=== PATIENT | male | born 1955 | race Hispanic/Latino ===

== ENCOUNTER 2016-11-15 08:22 | Outpatient (CLI) | payer BC ==
[2016-11-15 13:33] LABS: ALT (SGPT) 41 U/L (8-55); AST (SGOT) 35 U/L (5-34); Alkaline Phosphatase 79 U/L (40-150); Bilirubin, Direct 0.2 mg/dL (0.1-0.3); Bilirubin, Total 0.7 mg/dL (0.2-1.2); Cardiac Risk 5.7 (Less than 4.5); Cholesterol 195 mg/dl (< 200 Desired); HDL Cholesterol 34 mg/dL (>60 Neg Risk); LDL Cholesterol, Calculated 134 mg/dL; Protein, Total 6.8 g/dL (5.8-8.1); Triglycerides 137 mg/dL (Less than 150)
== END 2016-11-15 08:23 | disposition home or self-care (01) ==
LOC: NAVSJIPCSP 08:22
PROVIDERS: ATTEND Internal Medicine
DX: E78.5 Hyperlipidemia, unspecified (principal); Z79.899 Other long term (current) drug therapy
CPT/HCPCS: 36415; 80061; 80076

== ENCOUNTER 2017-10-13 08:48 | Outpatient (CLI) | payer BC ==
--- NOTE | 2017-10-13 10:23 | ULT ---
SONOGRAM ABDOMEN COMPLETE: History: Abnormal liver function tests. FINDINGS: Gallbladder has a normal appearance. Common duct is 0.6 cm. Liver is diffusely echogenic without foca l mass or intrahepatic biliary dilatation. No free fluid. The spleen, kidneys, and visualized portion s of the abdominal aorta, IVC, and pancreas are unremarkable. IMPRESSION: 1. No evidence of gallstones or biliary obstruction. 2. Hepatosteatosis. POS: OFF
== END 2017-10-13 08:49 | disposition home or self-care (01) ==
LOC: NAV ULT 08:48
PROVIDERS: ATTEND Internal Medicine
DX: R74.0 Nonspecific elevation of levels of transaminase and lactic acid dehydrogenase [LDH] (principal); K76.0 Fatty (change of) liver, not elsewhere classified
CPT/HCPCS: 76700

== ENCOUNTER 2018-03-09 16:40 | Outpatient (CLI) | payer BC ==
--- NOTE | 2018-03-09 18:59 | RAD ---
CERVICAL SPINE THREE VIEWS: HISTORY: Upper neck pain, at C3 and C4. No injury. TECHNIQUE: AP, lateral, and open-mouth odontoid views of the cervical spine are obtained. FINDINGS: Images demonstrate no significant evidence of disk space height loss. Small anterior and posterior o steophytes are seen at C4-C5 and C5-C6. Findings are compatible with changes of spondylosis. IMPRESSION: Mid cervical spine changes of spondylosis. No acute abnormality is seen. POS: MARYJANE
== END 2018-03-09 16:41 | disposition home or self-care (01) ==
LOC: NAV RAD 16:40
PROVIDERS: ATTEND Nurse Practitioner Adult Health
DX: M54.6 Pain in thoracic spine (principal); M47.892 Other spondylosis, cervical region
CPT/HCPCS: 72040

== ENCOUNTER 2019-04-05 09:24 | Observation (INO) | payer BC ==
[2019-04-05 09:49] LABS: #Basophils 0.1 thou/uL (0.0-0.2); #Eosinphils 0.2 thou/uL (0.0-0.7); #Lymphocytes 2.4 thou/uL (1.20-3.40); #Monocytes 0.6 thou/uL (0.11-0.59); #Neutrophils 3.7 thou/uL (1.40-6.50); %Basophils 0.9 % (0.0-1.0); %Eosinophils 3.2 % (0.0-10.0); %Lymphocytes 34.7 % (21.0-51.0); %Neutrophils 53.2 % (42.0-75.0); Hemoglobin 14.2 g/dL (14.0-18.0); Mean Corpuscular HGB CONC 33.2 g/dL (32.0-36.0); Mean Corpuscular Volume 87.5 fL (78.0-98.0); Platelet Count 233 thou/uL (130-400); RBC Distribution Width 12.5 % (11.5-14.5)
[2019-04-05 10:07] LABS: ALT (SGPT) 85 U/L (8-55); AST (SGOT) 44 U/L (5-34); Alkaline Phosphatase 97 U/L (40-110); Anion Gap 13 mmol/L (10-20); BUN (Urea Nitrogen) 13 mg/dL (8.4-25.7); Bilirubin, Total 0.4 mg/dL (0.2-1.2); Calc. Creatinine Clearance 0 mL/min (70-130); Calcium 9.2 mg/dL (7.8-10.44); Carbon Dioxide 26 mmol/L (23-31); Chloride 103 mmol/L (98-107); Estimated GFR-MDRD 75; Globulin 3.1 g/dL (2.4-3.5); Glucose 117 mg/dL (80-115); Potassium 4.1 mmol/L (3.5-5.1); Protein, Total 7.1 g/dL (5.8-8.1); Sodium 138 mmol/L (136-145)
[2019-04-05] MEDS ORDERED: Aspirin Chewable 81 MG TAB ONE (10:28)
--- NOTE | 2019-04-05 10:53 | RAD ---
Chest AP view INDICATION: Chest pain COMPARISON: September 26, 2011 FINDINGS: Lungs:The lungs are clear Cardiac silhouette:The cardiomediastinal silhouette appears within normal limits. Pulmonary vasculature:Normal Pleural spaces:No pleural effusion or pneumothorax is demonstrated. Upper abdomen:No abnormality seen. Osseous structures: No acute osseous abnormality. Additional findings:None. IMPRESSION: No acute cardiopulmonary abnormality.
[2019-04-05 11:26] VITALS: BMI 33.0
[2019-04-05] MEDS ORDERED: Acetaminophen 500 MG TAB PO PRN (13:22)
--- NOTE | 2019-04-05 15:25 | SS ---
DATE OF ADMISSION: 04/05/2019 DATE OF DISCHARGE: 04/05/2019 PRINCIPAL DIAGNOSIS: Atypical chest pain. SECONDARY DIAGNOSES: 1. Hypertension. 2. Possible gastroesophageal reflux disease. COMPLICATIONS: None. ADVERSE REACTIONS: None. PROCEDURES: None. CONSULTATIONS: None. HOSPITAL COURSE: The patient was admitted through the ER for observation since he noticed left pericardial chest pain at 7:00 a.m. this morning when he was at work. This pain apparently got worse until 9:00. He presented to the office and he was advised to come here to the ER. In the ER, he was given 4 aspirins. He stated that the pain resolved. He denies any lightheadedness or dizziness. He states that he did have some visual symptoms, where he felt like that he could not see well. He thought it was in both his eyes. He denies any radiation of the pain to his neck or to his arm. He states that it was more cramping in nature. He states that he is able to reproduce the pain. He denies any fever or chills. He denies any cough, chest pain, shortness of breath, PND, or orthopnea. He denies any problems with heartburn recently. PAST MEDICAL HISTORY: 1. Hypertension. 2. Dyslipidemia. 3. Elevated transaminases in the past. PAST SURGICAL HISTORY: None significant. 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 Denies any alcohol, tobacco, or IV drug abuse. FAMILY HISTORY: Denies any heart disease. MEDICATIONS: Losartan 100 mg daily. REVIEW OF SYSTEMS: CARDIOVASCULAR: See history of presenting illness. RESPIRATORY: Denies any chronic cough, expectoration, or pleuritic type chest pain. GASTROINTESTINAL: Denies any nausea, vomiting, diarrhea, constipation, hematemesis, melena, or hematochezia. GENITOURINARY: Denies any frequency, urgency, dysuria, or hematuria. CENTRAL NERVOUS SYSTEM: Denies any focal numbness, weakness, or fainting spells. HEENT: Denies any difficulty with speech, hearing, or swallowing. He states that he did notice some blurred vision. PHYSICAL EXAMINATION: GENERAL: Pleasant 63-year-old male, resting in bed and denies any concerns. He is alert, awake, and oriented x3. His family is in the room. VITAL SIGNS: He is afebrile, heart rate 65, respirations 18, oxygen saturation 96% on room air, and blood pressure 153/74. HEENT: Normocephalic and atraumatic. Pupils equally reactive to light and accommodation. External muscles are intact. No JVD, thyromegaly, cervical lymphadenopathy, or throat exudates. No carotid bruits. CARDIOVASCULAR: S1 and S2 plus. Rate and rhythm regular. RESPIRATORY: Normal vesicular breath sounds heard in all lung solorzano. ABDOMEN: Soft, nontender. Bowel sounds heard in all quadrants. He does have some epigastric tenderness. EXTREMITIES: Without cyanosis or clubbing. Peripheral pulses are palpable. CENTRAL NERVOUS SYSTEM: AAO x3. Cranial nerves 2 through 12 intact. Motor system examination is grossly nonfocal. Chest wall examination shows reproducible pain over the left precordium. LABORATORY DATA: Shows a white count of 7, hemoglobin and hematocrit is 14.2 and 42.9. Chemistry shows a sodium of 138, potassium 4.1, BUN and creatinine are 13 and 1.0, blood sugar was 117. AST and ALT are still mildly elevated at 44 and 85. Cardiac enzymes x2 is negative. BNP is normal at 30.4. IMPRESSION: 1. Atypical chest pain. 2. Fatty liver on ultrasound. 3. Elevated transaminases, likely due to fatty liver. 4. Dyslipidemia. 5. Possible gastroesophageal reflux disease. PLAN: 1. I advised nursing to start him on aspirin 81 mg daily and Pepcid 20 mg b.i.d. 2. Resume losartan 100 mg daily. 3. Discharge to home if serial cardiac enzymes are negative. 4. Unfortunate ultrasound is not available, so we will schedule him on an outpatient for a carotid Doppler and echocardiogram. 5. The patient was advised to come back to the ER if the symptoms return. 6. Outpatient workup with Cardiology. 7. I advised the patient to take Tylenol for the pain. 8. Discussed with the patient and nursing in detail. All questions answered. 9. Medications sent into [facility]. Job ID: [id number]
[2019-04-05] MEDS: Famotidine 20 MG TAB PO SCH (17:46)
[2019-04-05 19:16] VITALS: BP 135/64; TEMP 97.8
[2019-04-06] MEDS ORDERED: Losartan Potassium 50 MG TAB PO SCH (09:00)
[2019-04-06] MEDS ORDERED: Aspirin 81 mg Enteric Coated Tablet PO SCH (09:00)
== END 2019-04-05 17:45 | disposition home or self-care (01) ==
LOC: NAV ERS 09:24 → NAV ACUTE 11:19
PROVIDERS: ADMIT Internal Medicine; ATTEND Internal Medicine
DX: R07.89 Other chest pain (principal); I10 Essential (primary) hypertension; E78.5 Hyperlipidemia, unspecified; K76.0 Fatty (change of) liver, not elsewhere classified; Z79.899 Other long term (current) drug therapy
CPT/HCPCS: 36415; 71045; 80053; 83880; 84484; 85025; 93005; G0378

== ENCOUNTER 2019-04-26 12:58 | Outpatient (CLI) | payer BC ==
--- NOTE | 2019-04-26 14:47 | ULT ---
EXAM: Carotid ultrasound HISTORY: Hypertension COMPARISON: None TECHNIQUE: Multiplanar grayscale and color Doppler images were obtained in a carotid ultrasound. Spec tral analysis of the Doppler waveforms were performed. FINDINGS: No significant plaque is visualized in either internal carotid artery. No significant plaque is seen in either common carotid artery. The Doppler waveforms are normal in the visualized vessels. Peak systolic velocity in the right internal carotid artery 83 cm/s. Peak systolic velocity in the right common carotid artery 98 cm/s. The right ICA/CCA ratio is 0.9. Peak systolic velocity in the left internal carotid artery 111 cm/s. Peak systolic velocity in the left common carotid artery 104 cm/s. The left ICA/CCA ratio is 1.1. Both vertebral arteries demonstrate antegrade flow without focal stenosis IMPRESSION: No evidence of hemodynamically significant stenosis.
== END 2019-04-26 12:59 | disposition home or self-care (01) ==
LOC: NAV ULT 12:58
PROVIDERS: ATTEND Internal Medicine
DX: I11.9 Hypertensive heart disease without heart failure (principal); R07.89 Other chest pain; E78.5 Hyperlipidemia, unspecified; I08.1 Rheumatic disorders of both mitral and tricuspid valves
CPT/HCPCS: 93306; 93880

== ENCOUNTER → 2019-05-17 | Emergency (ER) | payer BC | LOC: NAV ERS 04:30 | DX: Z53.21 Procedure and treatment not carried out due to patient leaving prior to being seen by health care provider (principal) ==

== ENCOUNTER 2019-10-06 09:11 | Emergency (ER) | payer BC ==
[2019-10-06] MEDS ORDERED: Nitroglycerin 2% Ointment 1 INCH/1 GM Packet ONE (09:50)
[2019-10-06 09:58] LABS: #Basophils 0.1 thou/uL (0.0-0.2); #Eosinphils 0.2 thou/uL (0.0-0.7); #Monocytes 0.6 thou/uL (0.11-0.59); #Neutrophils 3.6 thou/uL (1.40-6.50); %Basophils 1.2 % (0.0-1.0); %Eosinophils 3.2 % (0.0-10.0); %Lymphocytes 31.1 % (21.0-51.0); %Monocytes 8.5 % (0.0-10.0); Hemoglobin 13.4 g/dL (14.0-18.0); Mean Corpuscular HGB CONC 31.7 g/dL (32.0-36.0); Mean Corpuscular Hemoglobin 28.5 pg (27.0-31.0); Mean Platelet Volume 8.2 fL (7.4-10.4); Platelet Count 210 thou/uL (130-400); RBC Distribution Width 12.3 % (11.5-14.5); White Blood Cell (WBC) Count 6.5 thou/uL (4.8-10.8)
[2019-10-06 10:10] LABS: ALT (SGPT) 41 U/L (8-55); AST (SGOT) 33 U/L (5-34); Albumin 3.8 g/dL (3.4-4.8); Alkaline Phosphatase 83 U/L (40-110); Anion Gap 15 mmol/L (10-20); BUN (Urea Nitrogen) 15 mg/dL (8.4-25.7); Bilirubin, Total 0.4 mg/dL (0.2-1.2); Calc. Creatinine Clearance 0 mL/min (70-130); Calcium 8.7 mg/dL (7.8-10.44); Carbon Dioxide 22 mmol/L (23-31); Chloride 102 mmol/L (98-107); Estimated GFR-MDRD 78; Globulin 2.8 g/dL (2.4-3.5); Glucose 111 mg/dL (80-115); Lipase 28 U/L (8-78); Potassium 3.8 mmol/L (3.5-5.1); Protein, Total 6.6 g/dL (5.8-8.1); Sodium 135 mmol/L (136-145)
[2019-10-06 10:32] LABS: CKMB 2.3 ng/mL (0-6.6)
--- NOTE | 2019-10-06 11:01 | RAD ---
Exam: Chest one view HISTORY:Chest pain Comparison: 04/05/2019 FINDINGS: Cardiac silhouette: Normal Aorta: Unremarkable Pulmonary vessels: Normal Costophrenic angles: Clear LUNGS: No masses or consolidation. Pneumothorax: None Osseous abnormalities: None IMPRESSION: No acute cardiopulmonary process.
== END 2019-10-06 12:25 | disposition short-term general hospital (02) ==
LOC: NAV ERS 09:11
DX: I10 Essential (primary) hypertension (principal); R79.89 Other specified abnormal findings of blood chemistry; R07.9 Chest pain, unspecified; Z79.899 Other long term (current) drug therapy
CPT/HCPCS: 71045; 80053; 82553; 83690; 84484; 85025; 85379; 93005

== ENCOUNTER 2020-04-28 00:51 | Emergency (ER) | payer BC ==
[2020-04-28 01:28] LABS: #Basophils 0.1 thou/uL (0.0-0.2); #Eosinphils 0.2 thou/uL (0.0-0.7); #Monocytes 0.5 thou/uL (0.11-0.59); #Neutrophils 2.6 thou/uL (1.40-6.50); %Basophils 0.9 % (0.0-1.0); %Eosinophils 4.2 % (0.0-10.0); %Lymphocytes 37.2 % (21.0-51.0); %Monocytes 9.3 % (0.0-10.0); %Neutrophils 48.4 % (42.0-75.0); Hemoglobin 14.2 g/dL (14.0-18.0); Mean Corpuscular HGB CONC 33.9 g/dL (32.0-36.0); Mean Corpuscular Hemoglobin 29.7 pg (27.0-31.0); Mean Corpuscular Volume 87.4 fL (78.0-98.0); Mean Platelet Volume 7.4 fL (7.4-10.4); Platelet Count 180 thou/uL (130-400); RBC Distribution Width 11.6 % (11.5-14.5); Red Blood Cell (RBC) Count 4.79 mill/uL (4.70-6.10); White Blood Cell (WBC) Count 5.4 thou/uL (4.8-10.8)
[2020-04-28 01:44] LABS: ALT (SGPT) 42 U/L (8-55); AST (SGOT) 30 U/L (5-34); Albumin 3.7 g/dL (3.4-4.8); Alkaline Phosphatase 84 U/L (40-110); Anion Gap 14 mmol/L (10-20); BUN (Urea Nitrogen) 17 mg/dL (8.4-25.7); Bilirubin, Total 0.4 mg/dL (0.2-1.2); Calc. Creatinine Clearance 0 mL/min (70-130); Calcium 8.4 mg/dL (7.8-10.44); Carbon Dioxide 26 mmol/L (23-31); Chloride 99 mmol/L (98-107); Globulin 2.8 g/dL (2.4-3.5); Glucose 150 mg/dL (80-115); Potassium 3.9 mmol/L (3.5-5.1); Protein, Total 6.5 g/dL (5.8-8.1); Sodium 135 mmol/L (136-145)
--- NOTE | 2020-04-28 08:52 | RAD ---
EXAM: Chest one view: HISTORY: Chest pain COMPARISON: 10/06/2019 FINDINGS: Stable increased markings bilaterally. Heart size: Within normal limits. Lungs: Clear of acute process. No evidence for confluent lobar pneumonia, significant pleural effusion, acute edema, or pneumothorax , or other significant acute process. IMPRESSION: No significant acute intrathoracic disease.
== END 2020-04-28 03:26 | disposition short-term general hospital (02) ==
LOC: NAV ERS 00:51
DX: R07.89 Other chest pain (principal); R39.15 Urgency of urination; I10 Essential (primary) hypertension; E78.5 Hyperlipidemia, unspecified; Z79.82 Long term (current) use of aspirin; Z79.899 Other long term (current) drug therapy
CPT/HCPCS: 36415; 71045; 80053; 83735; 83880; 84484; 85025; 93005; 94760